=== PATIENT | female | born 1950 ===

== ENCOUNTER → 2023-09-01 10:40 | Outpatient (BNVA) | payer MEDICARE, BC, OTHER, SELFPAY | PROVIDERS: PCP Nurse Practitioner Family; Visit Provider Physician Assistant Surgical ==

== ENCOUNTER 2023-12-10 13:34 | Outpatient (AMB) | payer MEDICARE, BC, OTHER, SELFPAY ==
--- NOTE | 2023-12-10 13:43 | A.OFFVIS_ITS ---
VS Expanded 12/10/23 13:56 BP 118/62 Blood Pressure Location Rt brachial Blood Pressure Position Sitting Pulse 118 H Pulse Source Pulse Oximeter Temp 97.1 F Temperature Source Temporal Artery Scan Pulse Oximetry 93 Oxygen Delivery Method Room Air Height 5 ft Weight 159 lb 9.6 oz BMI 31.2 Body Fat % 41.8 Body Fat Mass 66.6 Fat Free Mass 92.8 Visceral Fat Rating 12.0 Body Water % 40.8 Body Water Mass 65.0 Muscle Mass/Score 88.2 Basal Metabolic Rate/Score 1,287 Intake Visit Reasons: (OV) Lap Band *please see comments* Communications Equipment Operator Required: No Allergies Dust Allergy (Unknown, Uncoded 12/10/23 14:09) Unknown Levaquin Allergy (Unknown, Uncoded 12/10/23 14:09) nausea and vomiting Medication List - Last Reconciled 12/10/23 by UNIQUE Hunt losartan 25 mg PO DAILY multivitamin 1 tab PO DAILY HPI Comments Details: 73-year-old female presents to the office today for consultation regarding possible lap band removal. She had the lap band placed initially in [address] Barraza at [facility]. She has since been followed by providers at [facility]. She has had multiple band adjustments since that time, the last being done in 2021. She also has a history of abdominoplasty and brachioplasty in 2018 and 2016 respectively. She states that she has done very well with the band, she had been following with [facility] and was enquiring about whether she should have the band removed. She states that she is not having any problems with the band. She does have very rare reflux secondary to dietary indiscretions. She states that she has done very well with a structured meal program in the past. She asked multiple questions about gastric bypass, sleeve gastrectomy, balloon placement. Ultimately, she feels as though since there is no ongoing problems or concerns with the band including abdominal pain or significant chronic reflux, she is just going to continue to follow-up with [facility] for band adjustment. She will also look towards outpatient dietary management for a meal plan. [facility] Surgical History S/P brachioplasty S/P abdominoplasty Status post gastric banding Family History Family/Other No problems noted. Social History Alcohol intake: unknown Patient Tobacco Use Status: Never used Tobacco Review of Systems Const All systems reviewed & are unremarkable except as noted in HPI and below Physical Exam Const General: cooperative, healthy appearing, comfortable and no acute distress HEENT Head: Yes normal to inspection Ears: hearing grossly normal bilaterally Resp Effort & Inspection: normal respiratory effort Auscultation: clear to auscultation bilaterally Cardio Rate: regular rate Rhythm: regular rhythm GI Palpation (GI): Soft to palpation and nontender Auscultation: normal bowel sounds Assessment & Plan Assessment & Plan (1) Obesity (BMI 30-39.9): Code(s): E66.9 - Obesity, unspecified Category: Medical Plan: Patient is status post laparoscopic band placement in 2007 at [facility]. She had been following at [facility] although none since 2021. She will continue to follow up with them. She will seek outpatient dietary guidance. She certainly may call our office should she have any problems with her band such as significant reflux or abdominal pain. We certainly may remove it if she wishes, but at this point she does not wish to pursue any surgical intervention.
[2023-12-10 13:56] VITALS: BP 118/62; PULSE 118; TEMP 36.2; O2SAT 93; BMI 31.2
== END 2023-12-10 14:31 | disposition home or self-care (01) ==
PROVIDERS: PCP Nurse Practitioner Family; Visit Provider Physician Assistant Surgical
DX: E66.811 Obesity, class 1 (principal); Z68.31 Body mass index [BMI] 31.0-31.9, adult
CPT/HCPCS: 99204

== ENCOUNTER → 2023-12-10 13:34 | Outpatient (BNVA) | payer MEDICARE, BC, OTHER, SELFPAY | PROVIDERS: PCP Nurse Practitioner Family; Visit Provider Physician Assistant Surgical | DX: E66.9 Obesity, unspecified (principal); Z98.84 Bariatric surgery status; Z68.31 Body mass index [BMI] 31.0-31.9, adult | CPT/HCPCS: 99202 ==